=== PATIENT | male | born 1970 | race Caucasian/White ===

== ENCOUNTER 2017-05-30 20:29 | Emergency (ER) | payer MEDICAID ==
--- NOTE | 2017-05-30 21:11 | ED PDOC ---
HPI: Psych/Substance Abuse Time Seen by Provider: 05/30/17 20:37 Chief Complaint (Nursing): Alcohol Ingestion Chief Complaint (Provider): Alcohol Intoxication ED Caveat: Intoxicated History Per: Patient History/Exam Limitations: no limitations Onset/Duration Of Symptoms: Unknown Current Symptoms Are (Timing): Still Present Additional History Per: EMS, Family () Additional Complaint(s): Tre is a 46 y/o male who was brought to the ED via EMS after he was found sleeping in the street. Patient's states she was on the phone with him trying to meet him and he was not responding appropriately to questions. He eventually stopped responding and fell asleep in the street. He complains of headache but denies any other complaints. states he does not have a history of alcoholism but that he does drink daily. states that the last time this happened was approximately 2 years ago. Otherwise: (-) recent fever/ illness (-) nausea (-) vomiting (-) extremity pain (-) chest pain (-) abdominal pain D: [facility] Past Medical History Reviewed: Historical Data, Nursing Documentation, Vital Signs Vital Signs: Last Vital Signs Temp 97.4 F L 05/30/17 20:29 Pulse 82 05/30/17 20:29 Resp 18 05/30/17 20:29 BP 123/78 05/30/17 20:29 Pulse Ox 97 05/30/17 20:29 - Medical History PMH: Anxiety - Surgical History Surgical History: No Surg Hx - Family History Family History: States: Unknown Family Hx - Living Arrangements Living Arrangements: With Family - Social History Alcohol: < 2 Drinks/Day Drugs: Denies - Immunization History Hx Tetanus Toxoid Vaccination: Yes - Home Medications Home Medications: Ambulatory Orders Medication Instructions Recorded Clonazepam 0.5 mg PO BID #8 tab 11/25/13 Clonazepam 0.5 mg PO BID PRN 11/25/13 - Allergies Allergies/Adverse Reactions: Allergies Allergy/AdvReac Type Severity Reaction Status Date / Time No Known Allergies Allergy Verified 11/25/13 14:34 Review of Systems Review Of Systems: ROS cannot be obtained secondary to pt's inabilty to answer questions. Gastrointestinal: Negative for: Vomiting Neurological: Positive for: Headache Physical Exam - Reviewed Nursing Documentation Reviewed: Yes Vital Signs Reviewed: Yes - Physical Exam Appears: Positive for: Non-toxic, No Acute Distress ((+) odor of alcohol) Head Exam: Positive for: NORMOCEPHALIC. Negative for: ATRAUMATIC (superficial abrasion noted to left side of forehead (-) swelling (-) tenderness (-) bony deformity (-) ecchymosis) Skin: Positive for: Normal Color, Warm, Dry Eye Exam: Positive for: EOMI ENT: Positive for: Pharynx Is (clear, uvula midline) Neck: Positive for: Painless ROM, Supple Cardiovascular/Chest: Positive for: Regular Rate, Rhythm. Negative for: Murmur Respiratory: Positive for: Normal Breath Sounds. Negative for: Decreased Breath Sounds, Accessory Muscle Use, Respiratory Distress Gastrointestinal/Abdominal: Positive for: Soft. Negative for: Tenderness, Guarding, Rebound Extremity: Negative for: Deformity Neurologic/Psych: Positive for: Alert, Mood/Affect (intoxicated), Gait (unsteady ), Other (slurred speech). Negative for: Oriented - ECG O2 Sat by Pulse Oximetry: 97 (RA) Pulse Ox Interpretation: Normal Medical Decision Making Medical Decision Making: Time: 20:37 Initial Impression: Alcohol Intoxication Initial Plan: --Alcohol Serum --Blood Glucose 2225 Blood Glucose: 99 ETOH: 388 Pending clinical sobriety. 2300 remains at bedside. Patient resting comfortably in ED stretcher with no additional complaints. 0015 Patient is ambulatory in ED with a steady, unassisted gait. Patient was able to ambulate to ED bathroom without assistance. Patient is alert to person, place, and time and in no acute distress with no additional complaints. Patient was able to tolerate PO intake in ED. VSS. On exam, neck is supple, lungs CTA, cardiac RRR, abdomen is soft and non-tender , neuro exam shows no focal findings. Diagnostic results d/w the patient/ in great detail. Dx of alcohol abuse/ intoxication d/w the patient. Patient has a ride home with at bedside. Based on history, exam and diagnostic results plan will be for discharge and outpatient follow up. Advised to follow up with primary care physician/clinic in 1-2 days without fail. Return to the emergency room at any time for any new or worsening symptoms. Patient states he fully agrees with and understands discharge instructions. States that he agrees with the plan and disposition. Verbalized and repeated discharge instructions and plan. I have given the patient opportunity to ask any additional questions. Scribe Attestation: Documented by Stan Sanchez, acting as a scribe for Renetta Cao PA-C Provider Scribe Attestation: All medical record entries made by the Scribe were at my direction and personally dictated by me. I have reviewed the chart and agree that the record accurately reflects my personal performance of the history, physical exam, medical decision making, and the department course for this patient. I have also personally directed, reviewed, and agree with the discharge instructions and disposition. Disposition - Clinical Impression Clinical Impression: Alcohol abuse, Alcohol abuse with intoxication, Alcohol ingestion - Patient ED Disposition Is Patient to be Admitted: No Counseled Patient/Family Regarding: Diagnosis, Need For Followup - Disposition Referrals: [facility] [Outside] Disposition: Routine/Home Disposition Time: 00:30 Condition: STABLE Instructions: Alcohol Abuse and Alcoholism (DC), Effects of Alcohol on Your Health Forms: [employer] ([employer]) Print Language: UPPER SORBIAN - POA Present On Arrival: None
[2017-05-31 00:39] VITALS: BP 109/82; PULSE 86; RESP 19; TEMP 98
[2017-05-31 01:59] VITALS: O2SAT 97
== END 2017-05-31 00:39 | disposition home or self-care (01) ==
LOC: H.ER 20:29
DX: F10.129 Alcohol abuse with intoxication, unspecified (principal)